=== PATIENT | female | born 1935 | race Caucasian/White ===

== ENCOUNTER → 2021-02-12 16:15 | Outpatient (CLI) | payer MEDICARE, SELFPAY ==
--- NOTE | 2021-02-12 16:19 | DI.MRI.S_ITS ---
PROCEDURE: MR LUMBAR SPINE WO CON INDICATIONS: Post laminectomy syndrome, L4-5 spondy TECHNIQUE: Noncontrast sagittal T1 spin echo and T2 fast echo, sagittal STIR, axial T1 and T2 fast spin echo through the lumbar spine. In cases with scoliosis, additional coronal T2 fast spin echo may be performed. COMPARISON: [facility], FELIZ, XR L-SPINE 4-6V, 08/23/2020, 13:50. [facility], FELIZ, MRI L-SPINE W/WO CONTRAST, 12/14/2013, 13:46. FINDINGS: Image quality: Excellent. Alignment and Curvature: Mild dextro curvature centered at L2-L3. Degenerative anterolisthesis of L4 on L5 measures 8 mm. Trace degenerative retrolisthesis of L2 on L3 and of L1 on L2. Bone Marrow: Marrow is of normal overall signal. No acute vertebral body compression fractures. Spinal Cord: Conus medullaris terminates at the L1 level. Visualized cord demonstrates normal signal and size. Paraspinous Soft Tissues: No paravertebral masses. T11-T12: Mild disc bulge. No canal stenosis or foraminal stenosis. T12-L1: Disc bulge. Mild facet hypertrophy. Mild bilateral foraminal narrowing. No central canal stenosis. L1-L2: Disc bulge. No canal stenosis. Bulky left lateral osteophyte. [id number] right foraminal narrowing and moderate left foraminal narrowing. There is mild flattening deformity on the exiting left L1 nerve root sleeve. L2-L3: Moderate chronic disc height loss. Posterior disc plus osteophyte. Bilateral facet hypertrophy. There is moderate canal stenosis, underestimated by axial plane. There is moderate right foraminal narrowing. There is severe left foraminal narrowing with a degree of left foraminal L2 nerve root impingement. L3-L4: Diffuse disc bulge. Prominent facet hypertrophy. Moderate canal stenosis. Severe right foraminal narrowing with right L3 nerve root impingement. Moderately severe left foraminal narrowing with impingement on the left L3 nerve root. L4-L5: Anterolisthesis of L4 on L5. Posterior disc bulge. Marked facet hypertrophy. High-grade central canal stenosis. A tiny foraminal disc fragment contributes to severe right foraminal narrowing and right L4 nerve root impingement. There is moderate left foraminal narrowing with flattening deformity on the exiting left L4 nerve root. L5-S1: Disc bulge. Facet hypertrophy. Moderate canal stenosis. Mild right foraminal narrowing and [id number]-[id number] left foraminal narrowing. There is flattening deformity on the exiting left L5 nerve root. IMPRESSION: 1. Diffuse degenerative change. 2. Findings are most significant at L4-L5. There is high-grade central canal stenosis. There is severe right foraminal narrowing and moderate left foraminal narrowing. 3. Canal stenosis is moderate at L2-L3, moderate at L3-L4, and moderate at L5-S1. 4. Significant multilevel foraminal narrowing as described above. 5. Multilevel facet arthropathy. Dictated by: Alfonso Hong M.D. on 02/13/2021 at 0:03 Approved by: Alfonso Hong M.D. on 02/13/2021 at 0:14
== END ==
PROVIDERS: PCP Family Medicine; Referring Provider Physical Medicine & Rehabilitation; Visit Provider Physical Medicine & Rehabilitation
DX: M96.1 Postlaminectomy syndrome, not elsewhere classified (principal); M47.816 Spondylosis without myelopathy or radiculopathy, lumbar region; M47.817 Spondylosis without myelopathy or radiculopathy, lumbosacral region; M48.061 Spinal stenosis, lumbar region without neurogenic claudication; M48.07 Spinal stenosis, lumbosacral region; M41.9 Scoliosis, unspecified
CPT/HCPCS: 72148

== ENCOUNTER → 2021-06-17 13:13 | Outpatient (CLI) | payer MEDICARE, SELFPAY ==
[2021-06-17 14:38] LABS: COVID19 -Nasal RAPID Negative (Negative)
== END ==
PROVIDERS: PCP Family Medicine; Visit Provider Physical Medicine & Rehabilitation
DX: Z20.822 Contact with and (suspected) exposure to COVID-19 (principal)
CPT/HCPCS: 87635; C9803

== ENCOUNTER 2021-06-19 12:53 | Outpatient (CLI) | payer MEDICARE, SELFPAY ==
[2021-06-19] VITALS (8 sets, daily range): BP systolic 128–171; BP diastolic 65–78; PULSE 81–90; RESP 16–22; TEMP 37.1; O2SAT 95–100
--- NOTE | 2021-06-19 12:57 | DI.RAD.S_ITS ---
PROCEDURE: PAIN L/SI FACET INJ/BLK 1STL INDICATIONS: SPONDYLOSIS COMPARISON: [facility], RG, XR L-SPINE 4-6V, 08/23/2020, 13:50. [facility], MR, MR LUMBAR SPINE WO CON, 02/12/2021, 16:29. FINDINGS: Fluoroscopic spot filming was performed to verify placement of spinal needles on the right at the L3, L4, L5, and S1 levels, as labeled on the films. Appropriate location of the needle tips was confirmed by injection of iodinated contrast. IMPRESSION: Intraprocedural examination within normal limits. Dictated by: Reginald Charles M.D. on 06/19/2021 at 15:15 Approved by: Reginald Charles M.D. on 06/19/2021 at 15:15
[2021-06-19] MEDS: MIDAZOLAM 2 MG/2 ML VIAL (13:57)
[2021-06-19] MEDS: BUPIVACAINE 0.5% (PF) VIAL 5 ML INJ (13:57)
[2021-06-19] MEDS: IOPAMIDOL 15 ML VIAL 3 ML INJ (13:57)
[2021-06-19] MEDS: LIDOCAINE 1% 20 ML (13:59)
--- NOTE | 2021-06-19 14:10 | P.PCN_ITS ---
Date/Time/Diagnoses Date of procedure: 06/19/21 Time of procedure: 14:10 Pre-procedure diagnosis: 1. FACET ARTHROPATHY Post-procedure diagnosis: same Procedure Notes Procedure: 1. Right L3, L4, L5 and S1 MB BLOCKS Indications: Brenda/Curly is referred by Dr. Gates for treatment of Right Axial LBP. Physician: Sadi Cuevas Total Fluoroscopy time (seconds): 10 Total sedation minutes: 14 Complications: none Procedure in detail & Post-procedure care: DESCRIPTION OF PROCEDURE Fluoroscopically guided, contrast-controlled right L3, L4, L5 and S1 medial branch blocks with 0.5cc of 0.5% Marcaine. Following review of allergy and review of potential side effects and complications, including, but not necessarily limited to, infection, allergic reaction, local tissue breakdown, nerve injury, paralysis, stroke and possible , the patient indicated that the patient understood and agreed to proceed. An informed consent document was signed by the patient, witnessed by a nurse, and placed in the patient's chart. After review of previous anaesthesic history and IV conscious sedation the patient was deemed safe to proceed with today?s procedure with IV conscious sedation as ASA class II designation. Safety time-out was performed to confirm patient ID, procedure to be performed and site of procedure. IV sedation was accomplished with a combination of 2mg of Versed was administered by the RN aft er DO order, titrated to patient comfort during the course of the procedure while the patient remained responsive to all verbal commands In the prone position, following sterile prep and drape of the lumbar region, the right L3, L4, L5 and S1 anatomical location of the medial branch of the dorsal ramus was identified fluoroscopically. Subsequently an anesthetic skin wheal using 1% lidocaine solution was initiated at each of the anatomical spots. Subsequently then a 22-gauge 3.5-inch spinal needle was atraumatically introduced and advanced under fluoroscopic guidance at each of the corresponding sites at the right L3, L4, L5 and S1 MB. After negative aspiration, 0.2 cc of Isovue 200 was injected, confirming placement without vascular or intrathecal uptake. Subsequently then 0.5 cc of 0.5% Marcaine solution was injected at each of the corresponding sites at the right L3, L4, L5 and S1 medial branch locations. The patient tolerated the procedure well without signs or symptoms of complications. The procedure tolerated the procedure well without signs or symptoms of complications prior to transfer to the recovery area continued monitoring without incident. Post-procedure, the patient was monitored initiating provocative activities to measure the amount of relief from block of the facetogenic pain. The patient reported a VAS of 7 prior to the procedure and a post-procedure VAS of 1. It has been a pleasure to assist in the diagnostic and therapeutic care of your patient. POST OP INSTRUCTIONS The patient was provided with a Pain Log to complete over the next several hours and subsequent days prior to the patient's follow up with the ordering physician. 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 The patient is aware, was provided, once again, with a Pain Log and will follow up with the referring physician for review and clinical correlation.
== END 2021-06-19 14:28 | disposition home or self-care (01) ==
LOC: RAD 12:54
PROVIDERS: PCP Family Medicine; Referring Provider Physical Medicine & Rehabilitation; Visit Provider Physical Medicine & Rehabilitation
DX: M47.816 Spondylosis without myelopathy or radiculopathy, lumbar region (principal); M47.817 Spondylosis without myelopathy or radiculopathy, lumbosacral region
CPT/HCPCS: 64493; 64494; 64495; 99152; J2250

== ENCOUNTER 2022-08-11 13:15 | Outpatient (CLI) | payer MEDICARE, SELFPAY ==
[2022-08-11] VITALS (8 sets, daily range): BP systolic 113–188; BP diastolic 48–92; PULSE 75–87; RESP 12–23; TEMP 36.1; O2SAT 94–97
--- NOTE | 2022-08-11 13:17 | DI.RAD.S_ITS ---
PROCEDURE: PAIN L INTERLAMINAR/CAUDAL INJ INDICATIONS: SPONDYLOSIS COMPARISON: None. FINDINGS: Fluoroscopic spot filming was performed to verify placement of spinal needles at the L4-5 level(s), as labeled on the films. Appropriate location(s) of the needle tip(s) was confirmed by injection of iodinated contrast. IMPRESSION: Intra procedural fluoroscopic views of epidural injection. Dictated by: Alireza Peña M.D. on 08/11/2022 at 15:29 Approved by: Alireza Peña M.D. on 08/11/2022 at 15:31
[2022-08-11] MEDS: MIDAZOLAM 2 MG/2 ML VIAL IV (13:55)
[2022-08-11] MEDS: IOPAMIDOL 15 ML VIAL 3 ML INJ (13:59)
[2022-08-11] MEDS: BUPIVACAINE 0.25% (PF) VIAL 0.2 ML INJ (14:00)
[2022-08-11] MEDS: BETAMETHASONE 30 MG/5 ML MDV 6 MG INJ (14:00)
[2022-08-11] MEDS: DEXAMETHASONE 10 MG/ML VIAL 20 MG INJ (14:01)
--- NOTE | 2022-08-11 14:13 | P.PCN_ITS ---
Date/Time/Diagnoses Date of procedure: 08/11/22 Time of procedure: 14:13 Pre-procedure diagnosis: 1. HNP WITH RADICULAR FEATURES, 2. MULTILEVEL CENTRAL STENOSIS, Post-procedure diagnosis: same Procedure Notes Procedure: 1. FLUOROSCOPICALLY GUIDED CONTRAST CONTROLLED INTERLAMINAR EPIDURAL STEROID INJECTION -L4/5 Indications: Brenda/Curly is referred by Dr. Gates for treatment of Bilateral Foraminal Stenosis R>L LE symptoms. Physician: Sadi Cuevas Total Fluoroscopy time (seconds): 15 Total sedation minutes: 13 Complications: none Procedure in detail & Post-procedure care: FINDINGS Multilevel Central Spinal Stenosis with Nerve Root Compression DESCRIPTION OF PROCEDURE Fluoroscopically guided, contrast-controlled L4/5 translaminar epidural steroid injection. Following review of allergy and review of potential side effects and complications, including, but not necessarily limited to, infection, allergic reaction, local tissue breakdown, temporary as well as permanent nerve injury, paralysis, stroke and possible , the patient indicated that the patient understood and agreed to proceed. An informed consent document was signed by the patient, witnessed by a nurse, and placed in the patient's chart. Additionally, other treatment options including modalities, medications, and physical therapy were reviewed with the patient. After review of previous anaesthesic history and IV conscious sedation the patient was deemed safe to proceed with today?s procedure with IV conscious sedation as ASA class II designation. Safety time-out was performed to confirm patient ID, procedure to be performed and site of procedure. IV sedation was accomplished with a combination of 2mg of Versed was administered by the RN after DO order, titrated to patient comfort during the course of the procedure while the patient remained responsive to all verbal commands In the prone position, following sterile prep and drape of the lumbar region, the L4/5 translaminar space was identified fluoroscopically. The skin was anesthetized via a 25-gauge, 1.5inch needle with 1% lidocaine solution. At this point, a 22-gauge short bevel spinal needle was atraumatically introduced and advanced under fluoroscopic guidance into the region of the L4/5 translaminar space. Depth was confirmed on lateral view. Radiological data, including multiple fluoroscopic views of the lumbar spine, reveal a spinal needle at the L4/5 translaminar space. Lateral views then show placement of the needle in the epidural space. Subsequent views show contrast material flowing superiorly and inferiorly in the epidural space. No vascular or intrathecal uptake is observed. At this point, using loss of resistance technique with saline and air, the epidural space was entered. This was confirmed following negative aspiration with injection of approximately 1.5cc of Isovue 200, showing excellent epidural flow without vascular or intrathecal uptake. At this point, 1cc of 1% lidocaine solution combined with 3cc or 20mg of dexamethasone and 6mg betamethasone was injected without incident. The patient tolerated the procedure well without signs or symptoms of complications prior to transfer to the recovery area continued monitoring without incident. The patient was then transferred to the recovery area where they were observed for an appropriate period of time after the injection. The patient reported a VAS score of 6 prior to the procedure and a post- procedure VAS of 0. POST OP INSTRUCTIONS The patient was provided a Pain Log to continue to record their response to the target-specific procedure prior to follow-up visit with their referring physician. Additionally, specific post-injection care instructions and a contact number to our office were provided if concerns arise regarding possible complications associated with the procedure are suspected.
== END 2022-08-11 14:41 | disposition home or self-care (01) ==
PROVIDERS: PCP Family Medicine; Referring Provider Physical Medicine & Rehabilitation; Visit Provider Physical Medicine & Rehabilitation
DX: M48.062 Spinal stenosis, lumbar region with neurogenic claudication (principal); M96.1 Postlaminectomy syndrome, not elsewhere classified; M54.10 Radiculopathy, site unspecified
CPT/HCPCS: 62323; 99152; J0702; J1100; J2250